=== PATIENT | male | born 1990 | race African-American/Black ===

== ENCOUNTER 2017-01-31 18:25 | Emergency (ER) | payer OTHER ==
[~2017-01-31] VITALS: Ht 180.3 cm; Wt 74.8 kg
[~2017-01-31 18:25] MED LIST: ADVIL,NUPRIN,M200 MG PO; ASPIR 8181 M1 PO; CALCITRIOL0.25 MCG PO; CALCIUM ACETAT667 MG PO; CRESTOR20 MG PO; EMLA 30 GM30 GM TP; ERGOCALCIF50000 UNIT PO; GABAPENTIN300 MG PO; GENTAMICIN SULF30 GM TP; HUMALOG100 UNIT/1 SC; HUMALOG100 UNIT/2 SC; HYDROCODON-ACE1 EAC7 PO; IBUPROFEN200 M1 PO; LANTUS 10100 UNITS/ SC; LANTUS 3 M100 UNITS1 SC; LEVEMIR FL100 UNIT/1 SC; LEVOFLOXACIN500 MG PO; LOPRESSOR25 MG PO; LYRICA75 MG PO; NOVOLOG PE100 UNITS/ SC; PEN-VEE K,VEET500 MG PO; PLAVIX75 MG PO; PROTONIX40 MG PO; RENA-VITE RX T1 EACH PO; TYLENOL WITH C1 EACH PO; ZOLPIDEM TARTRAT5 MG PO; [UNRECOGNIZED DRUG - OTHER] MC
[2017-01-31 18:46] LABS: POINT-OF-CARE METER ID UU13113747
[2017-01-31 19:16] LABS: EOSINOPHIL (%) 3.1 % (0-5); EOSINOPHIL COUNT 0.2 K/uL (0-0.3); HEMATOCRIT 40.8 % (38.0-50.0); IMMATURE GRANULOCYTE (%) 0.1 % (0.0-0.7); LYMPHOCYTE COUNT 2.3 K/uL (1.0-2.8); MCH 29.4 PG (29.0-34.0); MCHC 33.6 G/DL (30.0-36.0); MCV 87.6 FL (86-99); MEAN PLAT.VOLUME 9.1 uM^3 (9.0-12.4); MONOCYTE (%) 7.7 % (3-12); MONOCYTE COUNT 0.5 K/uL (0-0.8); NEUTROPHIL (%) 55.3 % (45-76); NEUTROPHIL COUNT 3.9 K/uL (1.8-6.4); PLATELET COUNT 321 K/uL (156-360); RBC DIS.WIDTH-CV 12.5 % (11.8-14.6); RBC DIS.WIDTH-SD 39.8 % (39-53); RED BLOOD COUNT 4.66 M/uL (4.00-5.50)
[2017-01-31 19:17] LABS: INSTRUMENT ABS NEUTROPHIL CT 3.9 K/uL
[2017-01-31 19:26] LABS: CHLORIDE 99 mEq/L (99-109); POTASSIUM 4.3 mEq/L (3.7-5.4); SODIUM 133 mEq/L (136-147)
[2017-01-31 19:28] LABS: GLUCOSE 152 mg/dL (70-99)
[2017-01-31 19:30] LABS: ANION GAP 10 MEQ/L (2-14); TOTAL BILIRUBIN 0.4 mg/dL (0.0-1.0)
[2017-01-31 19:32] LABS: ALKALINE PHOSPHATASE 122 IU/L (3-129); GFR ESTIMATE (CALCULATED) > 59 mL/min/
[2017-01-31 19:33] LABS: UREA NITROGEN (BUN) 19 mg/dL (9-23)
[2017-01-31 19:35] LABS: LIPASE 33 U/L (1.0-51.0)
[2017-01-31] MEDS ORDERED: ZOFRAN ODT4 MG PO (22:16)
[2017-01-31] MEDS ORDERED: NORVASC5 MG PO (22:16)
[2017-01-31 22:42] VITALS: BP 121/83
== END 2017-01-31 23:14 | disposition home or self-care (01) ==
LOC: EME 18:25
PROVIDERS: Emergency Medicine
DX: R11.10 Vomiting, unspecified (principal); I10 Essential (primary) hypertension; E11.9 Type 2 diabetes mellitus without complications; J45.909 Unspecified asthma, uncomplicated; Z72.0 Tobacco use
CPT/HCPCS: 80053; 82948; 83690; 85025; 99281; 99284; J2405; J2765; J7030